=== PATIENT | male | born 1995 | race African-American/Black ===

== ENCOUNTER 2018-05-04 17:12 | Emergency (ER) | payer SELFPAY ==
[~2018-05-04] VITALS: Ht 177.8 cm; Wt 91.0 kg
[2018-05-04] MEDS ORDERED: PANTOPRAZOLE SODIUM 40 MG/VIAL IV STA (18:54)
[2018-05-04] MEDS ORDERED: ONDANSETRON HCL 4MG/2ML VIAL IV STA (18:54)
[2018-05-04] MEDS ORDERED: SODIUM CHLORIDE 0.9% 1,000 ML IV ONE (18:54)
[2018-05-04 19:11] LABS: CLARITY URINE CLEAR (CLEAR); COLOR URINE YELLOW (YELLOW); KETONES URINE 2+ (NEGATIVE); LEUKOCYTE ESTERASE URINE NEGATIVE (NEGATIVE); NITRITE URINE NEGATIVE (NEGATIVE); OCCULT BLOOD URINE TRACE (NEGATIVE); PH URINE 5.5 (4.5-8.0); PROTEIN URINE NEGATIVE (NEGATIVE); SPECIFIC GRAVITY URINE 1.026 (1.005-1.030); UROBILINOGEN URINE 0.2 E.U./dL (0.2-1.0)
[2018-05-04 19:27] LABS: HEMATOCRIT. 47.5 % (42.0-52.0); MEAN CORPUSCULAR HEMOGLOBIN 26.7 pg (28.0-32.0); MEAN CORPUSCULAR VOLUME 79.4 fL (80.0-94.0); MEAN PLATELET VOLUME 8.2 fl (7.4-10.4); PLATELET 267 x1000/uL (130-400); RED BLOOD CELL COUNT 5.98 mill/uL (4.7-6.1); RED CELL DISTRIBUTION WIDTH 13.8 % (11.6-14.6)
[2018-05-04 19:31] LABS: INR 1.1; PROTHROMBIN TIME 10.9 sec (9.1-11.1)
[2018-05-04 19:33] LABS: CHLORIDE 105 mEq/L (98-107)
[2018-05-04] MEDS ORDERED: SODIUM CHLORIDE 0.9% 1000ML BAG (SEPSIS BOLUS) IV ONE (20:00)
[2018-05-04] MEDS ORDERED: SODIUM CHLORIDE 0.9% IV SCH (20:00)
[2018-05-04] MEDS ORDERED: KETOROLAC 15MG/ML VIAL IV ONE (20:45)
[2018-05-04 21:52] LABS: PLATELET ESTIMATE NORMAL
[2018-05-05 00:30] VITALS: BP 126/81
== END 2018-05-05 00:32 | disposition home or self-care (01) ==
LOC: ER 17:12
DX: R11.10 Vomiting, unspecified (principal); R19.7 Diarrhea, unspecified; E86.0 Dehydration; R10.816 Epigastric abdominal tenderness; R51 Headache; R53.1 Weakness
CPT/HCPCS: 36415; 80053; 81003; 82962; 83605; 83690; 85025; 85610; 87040; 87086; 96361; 96374; 96375; 99285; C9113; J1885; J2405; J7030; Z7610

== ENCOUNTER 2023-10-03 14:18 | Emergency (ER) | payer SELFPAY ==
[~2023-10-03] VITALS: Ht 177.8 cm; Wt 122.0 kg
[2023-10-03 14:19] VITALS: TEMP 98; O2SAT 100
[2023-10-03] MEDS ORDERED: KETOROLAC 60MG/2ML VIAL IM STA (14:24)
[2023-10-03] MEDS ORDERED: ONDANSETRON 4MG ODT PO STA (14:24)
[2023-10-03 14:58] LABS: BASOPHILS % 0.2 % (0.0-2.0); DIFFERENTIAL COMMENT 0; EOSINOPHILS % 0.1 % (0.0-5.0); HEMATOCRIT. 43.3 % (42.0-52.0); HEMOGLOBIN. 14.4 g/dL (14.0-18.0); LYMPHOCYTES % 12.4 % (20.0-50.0); MEAN CORPUSCULAR HEMOGLOBIN 25.9 pg (28.0-32.0); MEAN CORPUSCULAR HGB CONC 33.2 g/dL (31.0-37.0); MEAN CORPUSCULAR VOLUME 78.2 fL (80.0-94.0); MEAN PLATELET VOLUME 8.3 fl (7.4-10.4); MONOCYTES % 13.4 % (2.0-8.0); NEUTROPHILS % 73.9 % (40.0-76.0); PLATELET 220 x1000/uL (130-400); RED BLOOD CELL COUNT 5.54 mill/uL (4.7-6.1); WHITE BLOOD COUNT 7.3 x1000/uL (4.5-11.0)
[2023-10-03 15:10] LABS: INR 1.1; PROTHROMBIN TIME 11.4 sec (9.6-11.0)
[2023-10-03 15:13] LABS: ALANINE AMINOTRANSFERASE 23 IU/L (10-49); ALBUMIN 4.6 g/dL (3.2-4.8); ASPARTATE AMINOTRANSFERASE 28 IU/L (<34); BILIRUBIN TOTAL 0.4 mg/dL (0.1-1.0); CALCIUM 9.2 mg/dL (8.7-10.4); CARBON DIOXIDE 25 mEq/L (21-32); CHLORIDE 103 mEq/L (98-107); CREATININE 0.9 mg/dL (0.6-1.3); GLUCOSE 91 mg/dL (70-105); POTASSIUM 3.1 mEq/L (3.5-5.1); PROTEIN TOTAL 8.2 g/dL (6.0-8.3); SODIUM 139 mEq/L (136-145); TROPONIN I HIGH SENSITIVITY 5 ng/L (3.0-53); UREA NITROGEN BLOOD 15 mg/dL (9-23)
[2023-10-03 15:20] LABS: ETHANOL BLOOD < 10 mg/dL (<10)
[2023-10-03] MEDS ORDERED: POTASSIUM CHLORIDE 20MEQ TABLET SR PO ONE (15:45)
[2023-10-03 17:00] VITALS: BP 135/75; PULSE 87; RESP 16
[2023-10-03 17:10] LABS: CLARITY URINE CLOUDY (CLEAR); COLOR URINE DARK YELLOW (YELLOW); GLUCOSE URINE NEGATIVE (NEGATIVE); KETONES URINE 2+ (NEGATIVE); LEUKOCYTE ESTERASE URINE NEGATIVE (NEGATIVE); NITRITE URINE NEGATIVE (NEGATIVE); OCCULT BLOOD URINE TRACE (NEGATIVE); PROTEIN URINE 1+ (NEGATIVE); SPECIFIC GRAVITY URINE 1.039 (1.005-1.030)
[2023-10-03 17:24] LABS: *AMPHETAMINES SCREEN URINE NEGATIVE (NEGATIVE); *BARBITURATES SCREEN URINE NEGATIVE (NEGATIVE); *BENZODIAZEPINES SCREEN URINE NEGATIVE (NEGATIVE); *COCAINE SCREEN URINE NEGATIVE (NEGATIVE); CANNABINOID URINE SCREEN PRESUMPTIVE POSITIVE (NEGATIVE); ECSTASY MDMA SCREEN URINE NEGATIVE (NEGATIVE); METHADONE URINE SCREEN Neg (NEGATIVE); OPIATES URINE SCREEN NEGATIVE (NEGATIVE); PHENCYCLIDINE URINE SCREEN NEGATIVE (NEGATIVE)
[2023-10-03 17:29] LABS: BACTERIA URINE 1+; SQUAMOUS EPITHELIAL CELL URINE 2+ /lpf (RARE/1+); WBC URINE 0-2 /hpf (0-2)
[2023-10-03] MEDS ORDERED: ONDA4TAB11 PO (18:32)
[2023-10-03] MEDS ORDERED: NAPR-1129 MT (18:32)
== END 2023-10-03 19:01 | disposition home or self-care (01) ==
LOC: ER 14:22
DX: R10.9 Unspecified abdominal pain (principal); E87.6 Hypokalemia; E86.0 Dehydration; J10.1 Influenza due to other identified influenza virus with other respiratory manifestations; F12.90 Cannabis use, unspecified, uncomplicated; Z20.822 Contact with and (suspected) exposure to COVID-19
CPT/HCPCS: 80053; 80305; 81003; 80320; 83690; 85025; 85610; 84484; 87804 ×2; 36415; 71045; 74176; 96372; 99285; 87426; Q0162; J1885; Z7610 ×3; C1893; G0480

== ENCOUNTER 2023-10-04 08:42 | Emergency (ER) | payer SELFPAY ==
[~2023-10-04] VITALS: Ht 182.9 cm; Wt 120.0 kg
[~2023-10-04 08:42] MED LIST: NAPR-1129 MT; ONDA4TAB11 PO
[2023-10-04 08:44] VITALS: BP 154/93; PULSE 65; RESP 16; TEMP 98.4; O2SAT 100
[2023-10-04] MEDS ORDERED: FAMOTIDINE 20MG/2ML VIAL IV STA (08:45)
[2023-10-04] MEDS ORDERED: ONDANSETRON HCL 4MG/2ML INJ IV STA (08:45)
[2023-10-04 09:29] LABS: HEMATOCRIT. 43.1 % (42.0-52.0); HEMOGLOBIN. 14.1 g/dL (14.0-18.0); MEAN CORPUSCULAR HGB CONC 32.7 g/dL (31.0-37.0); MEAN CORPUSCULAR VOLUME 79.5 fL (80.0-94.0); MEAN PLATELET VOLUME 8.2 fl (7.4-10.4); PLATELET 214 x1000/uL (130-400); RED BLOOD CELL COUNT 5.42 mill/uL (4.7-6.1); RED CELL DISTRIBUTION WIDTH 14.1 % (11.6-14.6); WHITE BLOOD COUNT 4.9 x1000/uL (4.5-11.0)
[2023-10-04 09:41] LABS: DIFFERENTIAL COMMENT 1
[2023-10-04 09:44] LABS: ALANINE AMINOTRANSFERASE 23 IU/L (10-49); ALBUMIN 4.5 g/dL (3.2-4.8); ASPARTATE AMINOTRANSFERASE 29 IU/L (<34); BILIRUBIN TOTAL 0.4 mg/dL (0.1-1.0); CARBON DIOXIDE 27 mEq/L (21-32); CHLORIDE 106 mEq/L (98-107); GLUCOSE 87 mg/dL (70-105); POTASSIUM 3.2 mEq/L (3.5-5.1); SODIUM 141 mEq/L (136-145); UREA NITROGEN BLOOD 16 mg/dL (9-23)
[2023-10-04 09:45] LABS: PROTHROMBIN TIME 11.2 sec (9.6-11.0)
[2023-10-04 11:37] LABS: MICROCYTOSIS 1+; PLATELET ESTIMATE NORMAL
== END 2023-10-04 12:24 | disposition left against medical advice (07) ==
LOC: ER 08:42
DX: R10.9 Unspecified abdominal pain (principal); R11.2 Nausea with vomiting, unspecified; F12.10 Cannabis abuse, uncomplicated
CPT/HCPCS: 99284; 96374; 71045; 96375; 80053; 83690; 85025; 85610; 36415; J3490; J2405

== ENCOUNTER 2024-12-13 17:00 | Emergency (ER) | payer MEDICAID ==
[~2024-12-13] VITALS: Ht 182.9 cm; Wt 122.4 kg
[~2024-12-13 17:00] MED LIST changes: +ONDA-239 PO; -ONDA4TAB11 PO
[2024-12-13 17:03] VITALS: O2SAT 100
[2024-12-13 17:17] VITALS: TEMP 36.7; O2SAT 99
[2024-12-13 23:31] VITALS: BP 132/86; PULSE 75; RESP 16
[2024-12-13] MEDS: HYDROCODONE/ACETAMINOPHEN 10/325MG TABLET PO ONE (23:31)
[2024-12-13] MEDS ORDERED: NAPR-681 MT (23:38)
[2024-12-13] MEDS ORDERED: AMOX1TAB16 MT (23:38)
[2024-12-13] MEDS ORDERED: SULF1TAB48 MT (23:41)
[2024-12-13] MEDS ORDERED: HYDR-4001 MT (23:41)
[2024-12-13] MEDS ORDERED: CEPH500T MT (23:41)
[2024-12-14] MEDS: SULFAMETHOXAZOLE/TRIMETHOPRIM 800/160MG TABLET PO ONE (00:10)
[2024-12-14] MEDS: LIDOCAINE HCL/EPINEPHRINE 1%-EPI 1:100,000 20ML VIAL INFIL ONE (00:15)
[2024-12-14] MEDS: BACITRACIN ZINC OINT UDPKT TOP ONE (00:15)
== END 2024-12-14 00:16 | disposition home or self-care (01) ==
LOC: ER 17:11
DX: L02.31 Cutaneous abscess of buttock (principal); F12.90 Cannabis use, unspecified, uncomplicated
CPT/HCPCS: 99284

== ENCOUNTER 2024-12-15 23:29 | Emergency (ER) | payer MEDICAID ==
[~2024-12-15] VITALS: Ht 182.9 cm; Wt 116.2 kg
[~2024-12-15 23:29] MED LIST changes: +CEPH500T MT; +HYDR-4001 MT; +SULF1TAB48 MT
[2024-12-15 23:42] VITALS: O2SAT 99
[2024-12-16] MEDS: KETOROLAC 15MG/ML VIAL IM ONE (02:00)
[2024-12-16] MEDS: BACITRACIN ZINC OINT UDPKT TOP ONE (03:00)
[2024-12-16] MEDS: LIDOCAINE HCL/PF 1% 10 MG/ML 5ML VIAL INFIL ONE (03:00)
[2024-12-16] MEDS: TETANUS, DIPHTHERIA, PERTUSSIS VAC/PF 0.5ML (>10YR OLD) IM ONE (03:00)
[2024-12-16] MEDS ORDERED: NAPR-1176 MT (04:22)
[2024-12-16 04:37] VITALS: BP 135/89; PULSE 89; RESP 16; TEMP 36.9; O2SAT 99
== END 2024-12-16 04:30 | disposition home or self-care (01) ==
LOC: ER 23:29
DX: L05.91 Pilonidal cyst without abscess (principal); Z79.1 Long term (current) use of non-steroidal anti-inflammatories (NSAID)
CPT/HCPCS: 10060; 99284; 90715; 90471; 96372; J2003; Z7610 ×2